=== PATIENT | female | born 1930 | race Caucasian/White ===

== ENCOUNTER 2017-11-26 11:30 | Inpatient (IN) | payer MEDICARE, BC ==
[2017-11-26 12:34] LABS: #Eosinphils 0.1 thou/uL (0.0-0.7); #Lymphocytes 1.2 thou/uL (1.20-3.40); #Monocytes 0.4 thou/uL (0.11-0.59); #Neutrophils 3.2 thou/uL (1.40-6.50); %Basophils 0.5 % (0.0-1.0); %Eosinophils 2.5 % (0.0-10.0); %Lymphocytes 24.3 % (21.0-51.0); %Monocytes 7.3 % (0.0-10.0); %Neutrophils 65.4 % (42.0-75.0); Mean Corpuscular HGB CONC 33.5 g/dL (32.0-36.0); Mean Corpuscular Hemoglobin 28.8 pg (27.0-31.0); Mean Platelet Volume 8.1 fL (7.4-10.4); Platelet Count 131 thou/uL (130-400); RBC Distribution Width 13.9 % (11.5-14.5); Red Blood Cell (RBC) Count 4.51 mill/uL (4.20-5.40); White Blood Cell (WBC) Count 4.9 thou/uL (4.8-10.8)
[2017-11-26 12:54] LABS: ALT (SGPT) 8 U/L (8-55); AST (SGOT) 14 U/L (5-34); Albumin 3.7 g/dL (3.4-4.8); Alkaline Phosphatase 73 U/L (40-150); Anion Gap 13 mmol/L (10-20); BUN (Urea Nitrogen) 21 mg/dL (9.8-20.1); Bilirubin, Total 0.7 mg/dL (0.2-1.2); CK (CPK) 79 U/L (29-168); Calc. Creatinine Clearance 0 mL/min (70-130); Calcium 8.5 mg/dL (7.8-10.44); Carbon Dioxide 24 mmol/L (23-31); Chloride 106 mmol/L (98-107); Estimated GFR-MDRD 50; Globulin 2.7 g/dL (2.4-3.5); Glucose 130 mg/dL (83-110); Lipase 45 U/L (8-78); Potassium 4.3 mmol/L (3.5-5.1); Protein, Total 6.4 g/dL (6.0-8.3); Sodium 139 mmol/L (136-145)
[2017-11-26 12:57] LABS: INR-International Normal Ratio 1.1; PTT 36.4 SEC (22.9-36.1); Prothrombin Time 14.7 SEC (12.0-14.7)
[2017-11-26 12:58] LABS: CKMB 2.2 ng/mL (0-6.6)
--- NOTE | 2017-11-26 13:11 | CT ---
CT BRAIN: Date: 11/26/17 PROVIDED CLINICAL HISTORY: Syncope. FINDINGS: Comparison with 08/29/12. The ventricular system appears normal in size and morphology. No evidence for intracranial hemorrhage or mass effect. Chronic microvascular ischemic changes are noted involving the cerebral white matter . The extracranial soft tissues and osseous structures demonstrate no acute findings. IMPRESSION: No evidence for intracranial hemorrhage or mass effect. POS: [facility]
--- NOTE | 2017-11-26 13:15 | RAD ---
PORTABLE CHEST: Date: 11/26/17 PROVIDED CLINICAL HISTORY: Weakness. FINDINGS: Comparison with 09/28/17. Cardiac and mediastinal silhouette is unchanged in appearance. Lungs appear clear. No pleural fluid o r pneumothorax apparent. IMPRESSION: No evidence for an acute cardiopulmonary process. POS: [facility]
[2017-11-26 13:34] LABS: Bilirubin Negative (Negative); Blood, Urine Negative (Negative); Clarity CLEAR (Clear); Glucose, Urine (Dipstick) Negative (Negative); Leukocyte Small (Negative); Nitrite Negative (Negative); Protein, Urine (Dipstick) Negative (Neg-Trace); Specific Gravity, Urine 1.009 (1.002-1.036); Urobilinogen 0.2 mg/dL (0.2-1.0); pH, Urine 6.5 (5.0-9.0)
[2017-11-26 13:36] LABS: Bacteria/HPF Rare-Few HPF (None Seen); Hyaline Casts/LPF 0-3 HYALINE CAST LPF (0-3 Hyaline); RBC/HPF 0-3 HPF (0-3); Squamous Epithelial 0-3 HPF (0-3); WBC/HPF 0-3 HPF (0-3)
[2017-11-26] MEDS ORDERED: Acetaminophen 325 MG TAB PO PRN (15:26)
[2017-11-26] MEDS ORDERED: Guaifenesin DM 100-10/5 ML UDCUP PO PRN (15:26)
[2017-11-26] MEDS ORDERED: Senokot 8.6 MG TAB PO PRN (15:26)
[2017-11-26 15:55] LABS: Critical Call Chem Troponin I RESULT DECREASING; Troponin I 0.316 ng/mL (< 0.028)
[2017-11-26 16:19] VITALS: BMI 31.6
--- NOTE | 2017-11-26 16:28 | HP ---
REASON FOR ADMISSION: Syncope, indeterminate troponin. HISTORY OF PRESENT ILLNESS: Patient was apparently sitting in the worship when she made a noise and slumped over. She was feeling cold, clammy and was not responsive per daughter who was next to her and witnessed the episode. She was not responding for nearly 4 or 5 minutes. They soon called EMS. The patient was slowly turning around and was saying "I'm okay" in a very weak voice and she had a weak pulse. In a few minutes, the patient again had another episode of slumping over before EMS arrived. After EMS arrived, the patient had systolic blood pressures at 65 mmHg. Her heart rate was 55. It is unclear what EMS did, but her blood pressures came up to 134/48 at 11:15 a.m., although her heart rate remained around 53. Currently in the ER room 23, patient is awake, alert, has no complaints of chest pain, palpitation, PND or orthopnea. No complaints of shortness of breath, fever, urinary symptoms, cough or expectoration. PAST MEDICAL/SURGICAL HISTORY: History of hypothyroidism, hypertension, coronary artery disease, appendectomy, peripheral neuropathy, hypothyroidism, dyslipidemia. CURRENT MEDICATIONS: Atorvastatin 20 mg p.o. daily, clonidine 0.2 mg p.o. q.a.m., Lasix 20 mg p.o. q.a.m., isosorbide mononitrate 30 mg p.o. twice daily, K-Dur 20 mEq p.o. daily, carvedilol 25 mg p.o. twice daily, gabapentin 600 mg p.o. at bedtime, losartan 100 mg p.o. daily, levothyroxine 50 mcg p.o. daily. ALLERGIES: No known drug allergies. PERSONAL HISTORY: Does not abuse alcohol or drugs. No history of smoking. FAMILY HISTORY: The patient has outlived all her siblings. REVIEW OF SYSTEMS: The following complete review of systems was negative, unless otherwise mentioned in the HPI or below: Constitutional: Weight loss or gain, ability to conduct usual activities. Skin: Rash, itching. Eyes: Double vision, pain. ENT/Mouth: Nose bleeding, neck stiffness, pain, tenderness. Cardiovascular: Palpitations, dyspnea on exertion, orthopnea. Respiratory: Shortness of breath, wheezing, cough, hemoptysis, fever or night sweats. Gastrointestinal: Poor appetite, abdominal pain, heartburn, nausea, vomiting, constipation, or diarrhea. Genitourinary: Urgency, frequency, dysuria, nocturia. Musculoskeletal: Pain, swelling. Neurologic/Psychiatric: Anxiety, depression. Allergy/Immunologic: Skin rash, bleeding tendency. PHYSICAL EXAMINATION: GENERAL: The patient is an 87-year-old female who is currently not in any acute distress. VITAL SIGNS: Blood pressure 160/54, pulse 60 per minute, respiratory rate 14 per minute, temperature 97.7 degrees Fahrenheit, saturating 97% on room air. NECK: Supple, no elevated JVD. HEENT: Extraocular muscles intact. Pupils are reacting to light. Oral cavity mucous membranes are moist. No exudates or congestion. CARDIOVASCULAR: S1, S2 heard. Regular rhythm. Murmur plus. RESPIRATORY: Air entry 1+ bilaterally. No rales or rhonchi. ABDOMEN: Soft, bowel sounds heard. No tenderness, rigidity or guarding. EXTREMITIES: No peripheral edema or calf tenderness. The patient wears an Santiago wrap for chronic edema in lower extremities with prior history of cellulitis. No ischemic ulcerations or gangrene. VASCULAR: Peripheral pulses are 1+ bilateral. CENTRAL NERVOUS SYSTEM: No gross focal deficits seen. Patient is alert, awake , and oriented well. PSYCHIATRIC: The patient's mood is euthymic. No hallucinations or delusions. LABORATORY AND X-RAY FINDINGS: Troponin I is 0.35. CK-MB 2.2. BNP is 227. Liver enzymes are within normal limits. Albumin is 3.7. Prolactin 7.4, lipase is 45. Electrolytes are stable. BUN 21, creatinine 1.0. PT/INR within normal limits. White count 4.9, H&H 13 and 38, platelet count 131, MCV is 86 with 65% neutrophils. Chest x-ray done shows no acute cardiopulmonary abnormalities. CT brain done shows no acute intracranial hemorrhage or mass. EKG done shows sinus bradycardia at 52 beats per minute. There is LVH strain pattern seen. CLINICAL IMPRESSION AND PLAN: The patient will be under observation on telemetry for syncope with indeterminate troponin. The patient is also bradycardic with likely due to multiple medications that she is on. She is also on Imdur 30 mg twice daily, likely from last 2 weeks or from the 2nd of this month, it is unclear. She also takes clonidine 0.2 mg p.o. q.a.m., instead of being on a p.r.n. basis. We will consult Dr. Abbasi, her food service associate during her stay here. We will continue her aspirin, Lipitor, Coreg, Neurontin, Synthroid, Cozaar as before. She will be on nitro paste half inch q.8 hourly. A nuclear stress test will be requested as well if the troponin remains less than 1. If patient were to become symptomatic, her stress test will be canceled. She will be kept n.p.o. after midnight for the stress test and further workup. Code status was discussed with the patient. She was previously DNR, but now she wants to talk to her children before she decides. For now, she will be FULL CODE until she decides and let us know. MARIFER
--- NOTE | 2017-11-26 16:40 | CON ---
DATE OF CONSULTATION: 11/26/2017 REASON FOR CONSULTATION: Syncope. PRIMARY OFFICE RN: Dr. Guilherme Abbasi. HISTORY OF PRESENT ILLNESS: Ms. Carson is a pleasant 87-year-old woman who has been seen by Dr. Wallace Abbasi in the past. She states she has syncopal episode today just prior to temple. There were no p redisposing factors. No chest pain, pressure, shortness of breath, dizziness or lightheadedness pres ent. No previous history of syncope. She states EMS was summoned due to no pulse and decrease blood pressure. She is back to her normal baseline. PAST MEDICAL HISTORY: Hypothyroidism, hyperlipidemia and hypertension. PAST SURGICAL HISTORY: Appendectomy. SOCIAL HISTORY: No tobacco or alcohol use. ALLERGIES: None. HOME MEDICATIONS: Include atorvastatin, clonidine, Lasix, isosorbide, potassium, carvedilol, gabapen tin, losartan and levothyroxine. REVIEW OF SYSTEMS: Ten-point review of systems is reviewed and as above, otherwise negative. PHYSICAL EXAMINATION: GENERAL: Patient is a pleasant female who is in no acute distress. The patient appears her stated a ge. VITAL SIGNS: Blood pressure 134/79, pulse 64 and temperature 98.2. NEUROLOGIC: The patient is alert and oriented x3 with no focal neurologic deficits. HEENT: Sclerae without icterus. Mouth has moist mucous membranes with normal pallor. NECK: No JVD. Carotid upstroke brisk. No bruits bilaterally. LUNGS: Clear to auscultation with unlabored respirations. BACK: No scoliosis or kyphosis. CARDIAC: Regular rate and rhythm with 2/6 systolic ejection murmur. No significant rubs, murmurs, t hrills, or gallops noted throughout the precordium. PMI is not displaced. There is no parasternal h eave. ABDOMEN: Soft, nontender, nondistended. No peritoneal signs present. No hepatosplenomegaly. No ab normal striae. EXTREMITIES: 2+ femoral and 2+ dorsalis pedis pulses. No cyanosis, clubbing, or edema. SKIN: No gross abnormalities. PERTINENT LABORATORY DATA: Hemoglobin 13. Creatinine 1.05. Troponin 0.35. IMPRESSION: Syncope. RECOMMENDATIONS: Ms. Carson's elevated troponin is certainly concerning. Her CK-MB is normal. Thi s may suggest coronary ischemia as the source. We discussed angiography with Ms. Carson. We will a lso recommend echo with Doppler in addition to monitoring overnight.
[2017-11-26] MEDS ORDERED: Communication Order-Pharmacy FS SCH (18:15)
[2017-11-26 19:25] LABS: Critical Call Chem Troponin I RESULT DECREASING; Troponin I 0.307 ng/mL (< 0.028)
[2017-11-26] MEDS: Atorvastatin Calcium 20 MG TAB PO SCH (20:00)
[2017-11-26] MEDS: Famotidine 20 MG TAB PO SCH (20:00)
[2017-11-26] MEDS: Carvedilol 25 MG TAB PO SCH (20:00)
[2017-11-26] MEDS: Nitroglycerin 2% Ointment 1 INCH/1 GM Packet TOP SCH (20:01)
[2017-11-26] MEDS: Gabapentin 300 MG CAP PO SCH (20:01)
[2017-11-27 04:50] LABS: #Eosinphils 0.1 thou/uL (0.0-0.7); #Lymphocytes 1.2 thou/uL (1.20-3.40); #Monocytes 0.5 thou/uL (0.11-0.59); #Neutrophils 2.7 thou/uL (1.40-6.50); %Basophils 0.1 % (0.0-1.0); %Eosinophils 2.9 % (0.0-10.0); %Lymphocytes 26.4 % (21.0-51.0); %Neutrophils 59.6 % (42.0-75.0); Hemoglobin 12.9 g/dL (12.0-16.0); Mean Corpuscular HGB CONC 32.9 g/dL (32.0-36.0); Mean Corpuscular Hemoglobin 28.2 pg (27.0-31.0); Mean Corpuscular Volume 85.8 fl (81.0-99.0); Mean Platelet Volume 8.6 fL (7.4-10.4); Platelet Count 130 thou/uL (130-400); Red Blood Cell (RBC) Count 4.58 mill/uL (4.20-5.40); White Blood Cell (WBC) Count 4.6 thou/uL (4.8-10.8)
[2017-11-27 05:03] LABS: Anion Gap 10 mmol/L (10-20); BUN (Urea Nitrogen) 21 mg/dL (9.8-20.1); Calc. Creatinine Clearance 70 mL/min (70-130); Calcium 8.6 mg/dL (7.8-10.44); Carbon Dioxide 26 mmol/L (23-31); Cardiac Risk 3.3 (Less than 4.5); Chloride 108 mmol/L (98-107); Cholesterol 134 mg/dl (< 200 Desired); Estimated GFR-MDRD 65; Glucose 112 mg/dL (83-110); HDL Cholesterol 41 mg/dL (>60 Neg Risk); LDL Cholesterol, Calculated 75 mg/dL; Potassium 3.7 mmol/L (3.5-5.1); Sodium 140 mmol/L (136-145); Triglycerides 89 mg/dL (Less than 150)
[2017-11-27] MEDS: Levothyroxine Sodium 50 MCG TAB PO SCH (05:20)
[2017-11-27] MEDS: Nitroglycerin 2% Ointment 1 INCH/1 GM Packet TOP SCH ×3 (05:20→20:36)
[2017-11-27] MEDS: Famotidine 20 MG TAB PO SCH ×2 (05:21→20:34)
[2017-11-27] MEDS: Losartan 25 MG TAB PO SCH (05:21)
[2017-11-27] MEDS: Carvedilol 25 MG TAB PO SCH ×2 (05:21→20:34)
[2017-11-27] MEDS ORDERED: Lidocaine 1% (PF) 30 ML VIAL ONE (07:09)
[2017-11-27] MEDS ORDERED: Nitroglycerin 100MG/250ML BOT 250 ML ONE (07:59)
[2017-11-27] MEDS ORDERED: hydrALAZINE 20 MG/ML VIAL ONE (08:07)
[2017-11-27] MEDS ORDERED: Acetaminophen/Codeine 30-300mg Tablet PO PRN ×2 (08:17)
[2017-11-27] MEDS ORDERED: Nitroglycerin 0.4 MG TAB (25 Tab Bottle) SL PRN (08:17)
[2017-11-27] MEDS ORDERED: traMADol HCl 50 MG TAB PO PRN (08:17)
[2017-11-27] MEDS ORDERED: Sodium Chloride 0.9% 200 ML IV SCH (08:30)
[2017-11-27] MEDS ORDERED: Sodium Chloride 0.9% 1,000 ML IV SCH (08:30)
[2017-11-27] MEDS ORDERED: Enoxaparin Sodium 40 MG/0.4 ML SYRINGE SC SCH (09:00)
[2017-11-27] MEDS ORDERED: Aspirin 325 MG TAB PO SCH (09:00)
[2017-11-27 10:09] LABS: Troponin I 0.285 ng/mL (< 0.028)
[2017-11-27 11:18] LABS: Troponin I 0.294 ng/mL (< 0.028)
--- NOTE | 2017-11-27 12:47 | ULT ---
BILATERAL CAROTID DOPPLER ULTRASOUND: HISTORY: Syncope. COMPARISON: None. TECHNIQUE: Real-time sepulveda-scale and color Doppler with spectral analysis of the extracranial carotid arteries an d vertebral arteries was performed. FINDINGS: No elevated peak systolic velocities within the internal carotid artery to suggest a hemodynamically significant stenosis. There is antegrade flow in both vertebral arteries. The right ICA/CCA ratio i s 0.97. The left ICA/CCA ratio is 1.19. IMPRESSION: No hemodynamically significant stenosis. POS: [facility]
[2017-11-27] MEDS ORDERED: hydrALAZINE 20 MG/ML VIAL SLOW IVP SCH (13:00)
[2017-11-27] MEDS ORDERED: Nitroglycerin 0.4 MG TAB (25 Tab Bottle) SL ONE (15:35)
[2017-11-27] MEDS ORDERED: cloNIDine 0.2 MG TAB PO SCH (15:45)
[2017-11-27] MEDS: Gabapentin 300 MG CAP PO SCH (20:35)
[2017-11-27] MEDS: Atorvastatin Calcium 20 MG TAB PO SCH (20:35)
[2017-11-27] MEDS ORDERED: cloNIDine 0.2 MG TAB PO PRN (23:45)
[2017-11-27] MEDS ORDERED: hydrALAZINE 20 MG/ML VIAL SLOW IVP PRN (23:47)
[2017-11-28] MEDS: Levothyroxine Sodium 50 MCG TAB PO SCH (05:24)
[2017-11-28] MEDS: Nitroglycerin 2% Ointment 1 INCH/1 GM Packet TOP SCH ×3 (05:26→21:50)
[2017-11-28] MEDS: Losartan 25 MG TAB PO SCH (07:57)
[2017-11-28] MEDS: Carvedilol 25 MG TAB PO SCH (07:57)
[2017-11-28] MEDS: Famotidine 20 MG TAB PO SCH ×2 (07:57→20:38)
[2017-11-28] MEDS: cloNIDine 0.2 MG TAB PO SCH (08:01)
--- NOTE | 2017-11-28 09:00 | PDOC.PN ---
- Subjective Encounter Start Date: 11/28/17 Encounter Start Time: 10:30 Subjective: pt flat in bed wants to get up - Objective Vital Signs & Weight: Vital Signs (12 hours) Temp Pulse Resp BP BP Pulse Ox 11/28/17 08:01 191/71 H 11/28/17 08:00 98.0 F 55 L 18 98 11/28/17 07:55 98.0 F 55 L 18 191/79 H 97 11/28/17 03:10 98.4 F 61 16 175/76 H 94 L 11/27/17 23:25 98.2 F 64 18 180/73 H 93 L Weight Weight 198 lb 3.2 oz I&O: 11/27/17 11/28/17 11/29/17 06:59 06:59 06:59 Intake Total 240 Output Total 500 Balance -260 Result Diagrams: 11/27/17 04:01 11/27/17 04:01 Phys Exam - Physical Examination HEENT: PERRLA Neck: no nodes, no JVD Respiratory: no wheezing, no rales Cardiovascular: RRR, no significant murmur Gastrointestinal: soft Musculoskeletal: no edema Dx/Plan - Plan 1) syncope 2) htn uncontrolled 3) hyperlipidemia 4) hypothrodism plan: pt had cath for elevated trops, no intervention needed. pt did have some svt today. will reconsult cardiology again HTN: will continue home meds but hold on bb given her bradycardia hyperlipidemia: stable hypothyroidism: will continue to monitor * . Review of Systems - Review of Systems Eyes: negative: Pain, Vision Change, Conjunctivae Inflammation, Eyelid Inflammation, Redness, Other ENT: negative: Ear Pain, Ear Discharge, Nose Pain, Nose Discharge, Nose Congestion, Mouth Pain, Mouth Swelling, Throat Pain, Throat Swelling, Other Respiratory: negative: Cough, Dry, Shortness of Breath, Hemoptysis, SOB with Excertion, Pleuritic Pain, Sputum, Wheezing Cardiovascular: negative: chest pain, palpitations, orthopnea, paroxysmal nocturnal dyspnea, edema, light headedness, other - Medications/Allergies Allergies/Adverse Reactions: Allergies Allergy/AdvReac Type Severity Reaction Status Date / Time No Known Allergies Allergy Verified 11/26/17 16:18 Medications: Current Medications Acetaminophen (Tylenol) 650 mg PO Q4H PRN PRN Reason: Headache/Fever or Pain Acetaminophen/Codeine Phosphate (Tylenol #3) 1 tab PO Q4H PRN PRN Reason: Mild Pain (1-3) Acetaminophen/Codeine Phosphate (Tylenol #3) 2 tab PO Q4H PRN PRN Reason: Moderate Pain (4-6) Atorvastatin Calcium (Lipitor) 20 mg PO HS [facility] Last Admin: 11/27/17 20:35 Dose: 20 mg Clonidine (Catapres) 0.2 mg PO DAILY [facility] Stop: 12/01/17 09:01 Last Admin: 11/28/17 08:01 Dose: 0.2 mg Famotidine (Pepcid) 20 mg PO BID [facility] Last Admin: 11/28/17 07:57 Dose: 20 mg Gabapentin (Neurontin) 600 mg PO HS [facility] Last Admin: 11/27/17 20:35 Dose: 600 mg Guaifenesin/Dextromethorphan (Robitussin Dm) 15 ml PO Q4H PRN PRN Reason: Cough Levothyroxine Sodium (Synthroid) 50 mcg PO 0600 [facility] Last Admin: 11/28/17 05:24 Dose: 50 mcg Losartan Potassium (Cozaar) 100 mg PO DAILY [facility] Last Admin: 11/28/17 07:57 Dose: 100 mg Nitroglycerin (Nitro-Bid 2% Ointment) 0.5 inch TOP Q8HR [facility] Last Admin: 11/28/17 12:46 Dose: Not Given Nitroglycerin (Nitrostat) 0.4 mg SL Q5MIN PRN PRN Reason: Chest Pain Quetiapine Fumarate (Seroquel) 25 mg PO [facility] Senna (Senokot) 2 tab PO HSPRN PRN PRN Reason: Constipation Last Admin: 11/28/17 05:24 Dose: 2 tab Sodium Chloride (Flush - Normal Saline) 10 ml IVF Q12HR [facility] Last Admin: 11/28/17 07:58 Dose: 10 ml Sodium Chloride (Flush - Normal Saline) 10 ml IVF PRN PRN PRN Reason: Saline Flush Tramadol HCl (Ultram) 50 mg PO Q6H PRN PRN Reason: Moderate Pain (4-6)
[2017-11-28] MEDS ORDERED: Iopamidol 370 76% 100 ML VIAL ONE (10:31)
--- NOTE | 2017-11-28 17:54 | PDOC.PN ---
- Objective Vital Signs & Weight: Vital Signs (12 hours) Temp Pulse Resp BP BP Pulse Ox 11/28/17 15:02 97.7 F 56 L 16 147/66 H 97 11/28/17 11:13 97.8 F 51 L 18 112/58 L 98 11/28/17 10:18 53 L 111/57 L 11/28/17 08:01 191/71 H 11/28/17 08:00 98.0 F 55 L 18 98 11/28/17 07:55 98.0 F 55 L 18 191/79 H 97 Weight Weight 198 lb 3.2 oz I&O: 11/27/17 11/28/17 11/29/17 06:59 06:59 06:59 Intake Total 240 480 Output Total 500 Balance -260 480 Result Diagrams: 11/27/17 04:01 11/27/17 04:01 Dx/Plan - Plan * . 1) syncope 2) htn uncontrolled 3) hyperlipidemia 4) hypothrodism plan: pt had cath for elevated trops, no intervention needed. pt did have some svt 11/27. EP consulted HTN: will continue home meds but hold on bb given her bradycardia hyperlipidemia: stable hypothyroidism: will continue to monitor pt was confused last night. will add seroquel today
--- NOTE | 2017-11-28 19:29 | PDOC.CTH ---
Cardiology Progress Note - Subjective She is doing well. no more syncopal spells. She has had a wide complex rhythm on telemetry that may be AIVR or slow non sustained VT. - Objective Vital Signs Temp Pulse Resp BP BP Pulse Ox 11/28/17 18:43 98.1 F 56 L 16 175/76 H 97 11/28/17 15:02 97.7 F 56 L 16 147/66 H 97 11/28/17 11:13 97.8 F 51 L 18 112/58 L 98 11/28/17 10:18 53 L 111/57 L 11/28/17 08:01 191/71 H 11/28/17 08:00 98.0 F 55 L 18 98 11/28/17 07:55 98.0 F 55 L 18 191/79 H 97 Weight 198 lb 3.2 oz 11/27/17 11/28/17 11/29/17 06:59 06:59 06:59 Intake Total 240 720 Output Total 500 Balance -260 720 - Physical Examination General/Neuro: alert & oriented x3, NAD Neck: no JVD present Lungs: CTA, unlabored respirations Heart: RRR Abdomen: NT/ND Extremities: + edema B (trace) - Telemetry Telemetry Rhythm: NSR, WC rhythm. - Labs Result Diagrams: 11/27/17 04:01 11/27/17 04:01 Troponin/CKMB CK-MB (CK-2) 2.2 ng/mL (0-6.6) 11/26/17 12:23 Troponin I 0.294 ng/mL (< 0.028) H 11/27/17 10:38 - Assessment/Plan 1. Syncope 2. Mild congestive heart failure, systolic most likely 3. 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 Mild . 5. Wide complex tachycardia, HR in the 90-110 PLAN: - May be relate to AIVR versus aberrancy, EP has been consulted. - No signifciant LVOT gradient on echo and only mild. - Became bradycardic to the 40's when given BB for her non sustained VT. - Will follow. - Would hold off on an more diuresis, she is more euvolemic now and it may exacerbate an LVOT obstruction.
[2017-11-28] MEDS: Atorvastatin Calcium 20 MG TAB PO SCH (20:38)
[2017-11-28] MEDS: Gabapentin 300 MG CAP PO SCH (20:38)
[2017-11-29] MEDS: Levothyroxine Sodium 50 MCG TAB PO SCH (05:30)
[2017-11-29] MEDS: Nitroglycerin 2% Ointment 1 INCH/1 GM Packet TOP SCH (05:30)
[2017-11-29] MEDS: cloNIDine 0.2 MG TAB PO SCH (08:02)
[2017-11-29] MEDS: Losartan 25 MG TAB PO SCH (08:02)
[2017-11-29] MEDS: Famotidine 20 MG TAB PO SCH ×2 (08:02→21:26)
[2017-11-29] MEDS ORDERED: Nitroglycerin 0.4 MG TAB (25 Tab Bottle) SL ONE (08:50)
[2017-11-29] MEDS: Isosorbide Dinitrate 20 MG TAB PO SCH ×2 (09:42→21:26)
--- NOTE | 2017-11-29 15:52 | PDOC.CTH ---
Cardiology Progress Note - Subjective She feels well. I walked into her room and her BP was in the 70's over 40's. She received an IV bolus of fluids and she responded very well. BP now at 110/ 62. She denies feeling presyncope or lightheaded with this BP. - Objective Vital Signs Temp Pulse Resp BP BP Pulse Ox 11/29/17 11:50 116/57 L 11/29/17 11:25 106/57 L 11/29/17 11:11 97.6 F 55 L 14 77/42 L 95 11/29/17 09:43 120/58 L 11/29/17 08:02 208/89 H 11/29/17 07:45 97.6 F 55 L 14 208/89 H 92 L 11/29/17 04:25 98.5 F 55 L 16 162/68 H 95 Weight 199 lb 6.4 oz 11/28/17 11/29/17 11/30/17 06:59 06:59 06:59 Intake Total 240 1200 Output Total 500 1350 Balance -260 -150 - Physical Examination General/Neuro: alert & oriented x3, NAD Neck: no JVD present Lungs: CTA, unlabored respirations Heart: RRR Abdomen: NT/ND Extremities: other: (no edema) - Telemetry Telemetry Rhythm: NSR. - Labs Result Diagrams: 11/27/17 04:01 11/27/17 04:01 Troponin/CKMB CK-MB (CK-2) 2.2 ng/mL (0-6.6) 11/26/17 12:23 Troponin I 0.294 ng/mL (< 0.028) H 11/27/17 10:38 - Assessment/Plan 1. Syncope 2. Mild congestive heart failure 3. 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 Mild . 5. Wide complex tachycardia, HR in the 90-110, may be aberrant conduction. PLAN: - EP consult pending. - No signifciant LVOT gradient on echo and only mild. - Became bradycardic to the 40's when given BB for her non sustained VT. - 500 ml IV bolus given for hypotension and responded well. .
--- NOTE | 2017-11-29 15:55 | CON ---
DATE OF CONSULTATION: 11/29/2017 ELECTROPHYSIOLOGY CONSULTATION REFERRING PHYSICIAN: Patricia Abbasi M.D. REASON FOR CONSULTATION: Syncope and wide complex tachycardia. HISTORY OF PRESENT ILLNESS: Ms. Carson is a very pleasant 87-year-old patient who arrived in the emergency room via EMS. She was at [employer] and had a syncopal episode. She does endorse that she was feeling slightly dizzy leading up to passing out. Family reports that she is acting groggy for about 3 minutes and then was back to normal mentation. She denies any heart racing, palpitations leading up to her episode. She has never had this happened before. There was no bowel or bladder incontinence associated. She denies any recent changes in her medication. She has been eating and drinking normally prior to the episode. Now we found her and she reports that she is back to her normal baseline. She has not had any recurrent episodes. She denies any heart racing, palpitations, chest pain or pressure. She has not had any dizziness or near syncopal episodes. She denies any stroke or stroke-like symptoms including unilateral weakness, speech changes, vision changes, paresthesias or facial droop. She has no history of arrhythmias. PAST MEDICAL HISTORY: Hypothyroidism, hyperlipidemia, and hypertension. PAST SURGICAL HISTORY: Appendectomy. SOCIAL HISTORY: Negative for tobacco, alcohol or illicit drug use. ALLERGIES: None. HOME MEDICATIONS: Include atorvastatin, clonidine, Lasix, isosorbide, potassium , carvedilol, gabapentin, losartan, and levothyroxine. REVIEW OF SYSTEMS: A 12 point review of systems was conducted and is negative except that listed above. PHYSICAL EXAMINATION: VITAL SIGNS: Most recent vital signs, 97.6 degrees Fahrenheit, pulse is 55, blood pressure 116/57, respirations are 14, 95% oxygen saturation on room air. GENERAL: This is a well-appearing and well-nourished female in no acute distress. She is moderately obese. She is alert and oriented x4. Her speech is clear and her affect is appropriate. HEENT: She is normocephalic. Her sclerae are anicteric and her EOMs are intact. NECK: Supple without jugular venous distention. Her thyroid is not palpable and there is no lymphadenopathy. Her oral mucosa is moist and pink with adequate dentition. Her carotids are without bruit with brisk uptake bilaterally. LUNGS: Clear to auscultation bilaterally without wheezes, crackles or rhonchi. Respirations are even and unlabored with good bilateral excursion. Her heart rate is regularly regular without significant murmur, rub or gallop. EXTREMITIES: Warm and dry to touch without clubbing, cyanosis or edema. There is trace edema to bilateral lower extremities. ABDOMEN: Obese, soft, and nontender without palpable masses. Hepatojugular reflux is negative. NEUROLOGIC: Grossly intact and nonfocal. Gait was not assessed as patient is resting in bed. LABORATORY DATA: Laboratory results from 11/27/2017, WBC 4.6, hemoglobin 12.9, hematocrit 39.3, and platelet count is 130. Chemistry: Sodium 140, potassium 3.7, chloride 108, carbon dioxide 26, BUN is 21, and creatinine 0.83. Serial troponins were conducted peaking at 0.350. BNP on 11/26/2017 was 227. Urinalysis on 11/26/2017 was negative for UTI. IMAGING DATA: Review of 12 lead and rhythm on telemetry. These were personally reviewed by Dr. Marshall. Patient was found to have wide complex tachycardia that is a slow ventricular tachycardia in 120 beat per minute range. Otherwise, patient is maintaining sinus mechanism with rates between 55 and 70. ASSESSMENT: 1. Recent syncopal episode. 2. Slow ventricular tachycardia of which patient is asymptomatic. ASSESSMENT AND PLAN: A lengthy discussion was had with the patient and her family regarding ventricular tachycardia and available treatments. The patient has not had an episode like this previously. It is possible that her episode was linked with the arrhythmia that we find as an inpatient; however, patient has had repeat episodes of VT while hospitalized and she has remained completely asymptomatic throughout. At this point, recommend the patient discharged home with a monitor to wear for 2-3 weeks to better assess burden of her arrhythmias and ideally to correlate symptoms with her arrhythmias. Alternatively, patient should be initiated on beta phu and possibly sotalol down the road. Should her arrhythmias evidently correlate with her symptoms in the future by her monitor, would consider VT ablation. The patient and her family verbalized understanding and agreed with this plan of care. All questions have been answered. Dictated as scribe for Dr. Joanna CAICEDO
[2017-11-29] MEDS: Gabapentin 300 MG CAP PO SCH (21:25)
[2017-11-29] MEDS: Atorvastatin Calcium 20 MG TAB PO SCH (21:26)
--- NOTE | 2017-11-29 22:24 | PDOC.PN ---
- Subjective Encounter Start Date: 11/29/17 Encounter Start Time: 10:30 Subjective: pt up in bed no compalins - Objective Vital Signs & Weight: Vital Signs (12 hours) Temp Pulse Resp BP Pulse Ox 11/29/17 16:15 97.6 F 61 16 166/67 H 96 11/29/17 11:50 116/57 L 11/29/17 11:25 106/57 L 11/29/17 11:11 97.6 F 55 L 14 77/42 L 95 Weight Weight 199 lb 6.4 oz I&O: 11/28/17 11/29/17 11/30/17 06:59 06:59 06:59 Intake Total 240 1200 Output Total 500 1350 Balance -260 -150 Result Diagrams: 11/27/17 04:01 11/27/17 04:01 Phys Exam - Physical Examination HEENT: PERRLA Neck: no nodes Respiratory: no wheezing, no rales Cardiovascular: RRR, no significant murmur Gastrointestinal: soft, non-tender Musculoskeletal: no edema Neurological: non-focal Dx/Plan - Plan * . 1) syncope 2) htn uncontrolled 3) hyperlipidemia 4) hypothrodism plan: pt had cath for elevated trops, no intervention needed. pt did have some svt 11/27. EP consulted HTN: will continue home meds but hold on bb given her bradycardia hyperlipidemia: stable hypothyroidism: will continue to monitor pt was seen by EP will put pt on coreg again low dose. she did have low bp today after getting all her meds. will rearrange her meds so she does not have low bp again. Her bp is very labile. will lower the dose of clonidine.
[2017-11-30 05:48] LABS: Anion Gap 11 mmol/L (10-20); BUN (Urea Nitrogen) 25 mg/dL (9.8-20.1); Calc. Creatinine Clearance 74 mL/min (70-130); Calcium 8.4 mg/dL (7.8-10.44); Carbon Dioxide 24 mmol/L (23-31); Chloride 109 mmol/L (98-107); Estimated GFR-MDRD 70; Glucose 100 mg/dL (83-110); Potassium 3.8 mmol/L (3.5-5.1); Sodium 140 mmol/L (136-145)
[2017-11-30] MEDS: Levothyroxine Sodium 50 MCG TAB PO SCH (05:59)
[2017-11-30] MEDS ORDERED: Carvedilol 6.25 MG TAB PO SCH (08:00)
--- NOTE | 2017-11-30 08:10 | PDOC.CTH ---
Cardiology Progress Note - Subjective The pt seen and examined. No overnight events. No cardiac complaints. Her SBP in AM has been 180-200s and gone down to 100-110s after AM BP meds. - Objective Vital Signs Temp Pulse Resp BP BP Pulse Ox 11/30/17 04:00 98.8 F 65 19 201/85 H 95 11/30/17 01:31 98.6 F 66 17 139/62 97 11/29/17 23:59 98.6 F 66 17 139/62 97 Weight 200 lb 11/29/17 11/30/17 12/01/17 06:59 06:59 06:59 Intake Total 1200 360 Output Total 1350 200 Balance -150 160 - Physical Examination General/Neuro: alert & oriented x3 Neck: no JVD present Lungs: CTA Heart: RRR Abdomen: soft Extremities: other: (No edema) - Telemetry Telemetry Rhythm: SR 60s - Labs Result Diagrams: 11/27/17 04:01 11/30/17 03:59 Troponin/CKMB CK-MB (CK-2) 2.2 ng/mL (0-6.6) 11/26/17 12:23 Troponin I 0.294 ng/mL (< 0.028) H 11/27/17 10:38 - Assessment/Plan 1. Syncopal episode - no recurrent episode during this admission per family report; cont. monitor on tele 2. 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 No edema, stable with RA. 3. LVH with possible LVOT obstruction - cont. monitor 4. Mild . 5. Wide complex tachycardia, HR in the 90-110 - may be aberrant conduction, EP consult, Hx of bradicardia after BBlocker was given. 6. HTN - BP tend to be very high in AM and stable after AM medication; Start Norvasc 5mg @ HS and Clonidin 0.1mg x1 this AM 7. Hyperlipidemia - on Statin 8. Hypothyrodism - Managed by PCP SALLY reviewed * Cath on 11/27/17 showed normal coronary arteries. * per EP recommendation, D/c with [facility] for 2-3 wks and possible VT ablation for VT * Carotid doppler stuty on 11/27/17 showed no significant stenosis Review of Systems - Review of Systems Constitutional: reports: no symptoms reported EENTM: reports: no symptoms reported Respiratory: reports: no symptoms reported Cardiac (ROS): reports: no symptoms reported ABD/GI: reports: no symptoms reported : reports: no symptoms reported Musculoskeletal: reports: no symptoms reported
[2017-11-30] MEDS ORDERED: cloNIDine 0.1 MG TAB PO SCH ×2 (08:15→17:00)
[2017-11-30] MEDS: Famotidine 20 MG TAB PO SCH (08:38)
[2017-11-30 08:40] VITALS: BP 142/67
[2017-11-30] MEDS: Isosorbide Dinitrate 20 MG TAB PO SCH (08:58)
[2017-11-30] MEDS ORDERED: Losartan 25 MG TAB PO SCH (09:00)
--- NOTE | 2017-11-30 11:19 | PDOC.CTH ---
<Evelyn Bejarano - Last Filed: 11/30/17 11:17> Cardiology Progress Note - Subjective EP progress note: patient has done well overnight but had difficulty sleeping. She has been up walking in the room, eating, and voiding normally. Denies any heart racing, palpitations, chest pain, dizziness, or passing out. She is without cardiac complaint today. - Objective Vital Signs Temp Pulse Resp BP BP BP Pulse Ox 11/30/17 08:37 142/67 H 11/30/17 04:00 98.8 F 65 19 201/85 H 95 11/30/17 01:31 98.6 F 66 17 139/62 97 11/29/17 23:59 98.6 F 66 17 139/62 97 Weight 200 lb 11/29/17 11/30/17 12/01/17 06:59 06:59 06:59 Intake Total 1200 360 Output Total 1350 200 Balance -150 160 - Physical Examination General/Neuro: alert & oriented x3, NAD Neck: carotid US brisk, no JVD present Lungs: CTA, unlabored respirations Heart: RRR Abdomen: no HSM, NT/ND, soft - Telemetry Telemetry Rhythm: NSR/SA - Labs Result Diagrams: 11/27/17 04:01 11/30/17 03:59 Troponin/CKMB CK-MB (CK-2) 2.2 ng/mL (0-6.6) 11/26/17 12:23 Troponin I 0.294 ng/mL (< 0.028) H 11/27/17 10:38 - Assessment/Plan 1. Syncope- no recurrence. Possibly cardiogenic although patient was asymptomatic with WCT captured on tele monitor. 2. Non sustained ventricular tachycardia- slow VT in 120-130 range. Asymptomatic. No additional episodes in past 24 hours. 3. Hypertension- per cardiology Arranging for 2 week monitor to be sent to patient once discharged. Follow up at [facility] in 4-6 weeks <Timi Laurent - Last Filed: 12/04/17 16:06> Cardiology Progress Note - Objective Weight 200 lb - Labs Result Diagrams: 11/27/17 04:01 11/30/17 03:59 Troponin/CKMB CK-MB (CK-2) 2.2 ng/mL (0-6.6) 11/26/17 12:23 Troponin I 0.294 ng/mL (< 0.028) H 11/27/17 10:38 Attending Addendum - Attending Addendum Date/Time: 12/04/17 1606 I agree with the History, Examination, Assessment and Plan documentedby Ms Bejarano.
[2017-11-30 11:20] VITALS: TEMP 97.2
--- NOTE | 2017-11-30 13:09 | CON ---
DATE OF CONSULTATION: 11/29/2017 REQUESTING PHYSICIAN: Dr. Guilherme Abbasi. REASON FOR VISIT: Syncope and reports a wide complex tachycardia. HISTORY OF PRESENT ILLNESS: Clarice Carson is an 87-year-old lady, who was brought to the emergency ro by EMS. She apparently was at [employer] and had a near syncopal episode. She reported that she felt dizzy and began to slump over. Family reported that she was somewhat groggy, but when I talked to h er, she would in a low voice, telling that she feels okay, but felt a little lightheaded. They held her in the upright position and then she returned after about 3 minutes to normal mentation. She was unaware of any sense of rapid palpitations. She has not had previous episodes of syncope. She had no evidence of seizure disorder, bowel or bladder incontinence, and she was not confused for a prolon ged period of time after the event. She returned to baseline subsequently thereafter. In the hospit al, on telemetry monitoring, she has demonstrated some episodes of a relatively slow ventricular tach ycardia, for which she was asymptomatic. A Cardiology evaluation shows her ejection fraction is well preserved. PAST MEDICAL HISTORY: Notable for hypothyroidism, hyperlipidemia, and hypertension. PAST SURGICAL HISTORY: She has a history of appendectomy. SOCIAL HISTORY: No tobacco, alcohol, or illicit drug use. ALLERGIES: No known allergies. HOME MEDICATIONS: Include Atorvastatin, clonidine, Lasix, isosorbide, potassium, gabapentin, carvedi lol, losartan, and levothyroxine. REVIEW OF SYSTEMS: Negative for fevers, chills. No change in vision or hearing, no TIA, strokes, pa raesthesia, dysarthric, dysphasia. No claudication, no recent cough or upper respiratory infection, no wheezing or asthma. Denies hemoptysis, no anginal type chest pain, near syncope as described abov e. No orthopnea or paroxysmal nocturnal dyspnea. No abdominal pain, melena, hematochezia, no freque ncy, dysuria, hematuria. No rashes. No skin cancer. No depression, anxiety. PHYSICAL EXAMINATION: GENERAL: Well-developed, well-nourished lady. VITAL SIGNS: Pulse is around 55 beats per minute, blood pressure is 116/57, respirations are 13-14, and 95% saturations. HEENT: She is normocephalic, atraumatic. Pupils equally round and reactive. Extraocular muscles ar e intact. Sclerae are anicteric. Conjunctivae clear. Mucous membranes pink and moist. Dentition i s adequate. NECK: Supple. There is no jugular venous distention. Carotids have good upstroke. No adenopathy o r thyromegaly. CHEST: Clear. Respiratory effort is normal. HEART: She has a regular rate with a nondisplaced PMI. No heaves, gallops, or rubs. ABDOMEN: Soft, benign, nontender, no organomegaly. Bowel sounds are present. The abdominal aorta i s not palpable. VASCULAR: Femoral pulses are 2+ and symmetric. Dorsalis pedis, posterior tibialis, and radial pulse s are symmetric. SKIN: Warm and dry without clubbing, cyanosis or edema. There is no significant kyphoscoliosis. NEUROLOGIC: Grossly nonfocal. Alert and oriented x4. LABORATORY STUDIES: Essentially unremarkable. Telemetry shows a normal baseline EKG. EKGs that freida w a wide complex tachycardia that is relatively slow in the 120 beats per minute range and there is a dissociation of her ventricular rhythm with a slower atrial rhythm that can be seen to march through her QRS complexes. IMPRESSION: 1. Recent syncopal event. 2. Preserved left ventricular systolic function. 3. Probable normal heart ventricular tachycardia that is relatively slow and in the hospital has bee n asymptomatic. RECOMMENDATIONS: I had a lengthy discussion with the patient and family today with her advanced age, we discussed the near syncopal episode that she had again she did not lose consciousness with this e pisode. One option would be to continue to monitor her and see if there are any recurrences, very di fficult to determine this whether the slow ventricular tachycardia is responsible for her syncopal ep isode. It may be completely unrelated and may respond to beta blockers probably a left bundle branch block pattern from the outflow tract. We will plan to see her back in followup in about 6 weeks.
--- NOTE | 2017-11-30 15:16 | PDOC.PN ---
- Subjective Encounter Start Date: 11/30/17 Encounter Start Time: 12:30 - Objective Vital Signs & Weight: Vital Signs (12 hours) Temp Pulse Resp BP BP BP Pulse Ox 11/30/17 08:37 142/67 H 11/30/17 08:17 97.2 F L 75 18 142/67 H 95 11/30/17 08:00 97.2 F L 75 18 95 11/30/17 04:00 98.8 F 65 19 201/85 H 95 Weight Weight 200 lb I&O: 11/29/17 11/30/17 12/01/17 06:59 06:59 06:59 Intake Total 1200 360 360 Output Total 1350 200 Balance -150 160 360 Result Diagrams: 11/27/17 04:01 11/30/17 03:59 Phys Exam - Physical Examination HEENT: PERRLA Neck: no nodes Respiratory: no wheezing, no rales Cardiovascular: RRR, no significant murmur Gastrointestinal: soft, non-tender Musculoskeletal: no edema Dx/Plan - Plan * . * . 1) syncope 2) htn uncontrolled 3) hyperlipidemia 4) hypothrodism plan: pt had cath for elevated trops, no intervention needed. pt did have some svt 11/27. EP consulted HTN: will continue home meds but hold on bb given her bradycardia hyperlipidemia: stable hypothyroidism: will continue to monitor pt was seen by EP will put pt on coreg again low dose. she did have low bp today after getting all her meds. will rearrange her meds so she does not have low bp again. Her bp is very labile. will lower the dose of clonidine. questions answered. pt and pt's family made aware that they will have to follow up with ep and pcp. also to keep a log of he blood pressure since her bp is very labile.
[2017-11-30] MEDS ORDERED: Amlodipine 5 MG TAB PO SCH (21:00)
--- NOTE | 2017-11-30 22:04 | DIS ---
DATE OF ADMISSION: 11/27/2017 DATE OF DISCHARGE: 11/30/2017 DISCHARGE DIAGNOSES: 1. Syncope, most likely secondary to underlying arrhythmia, possibly ventricular tachycardia. 2. Hypertension, very labile. 3. Hyperlipidemia. 4. Elevated troponins, possible non-ST elevation myocardial infarction on admission; however, the anette nunez had a cardiac catheterization in which non-ST elevation myocardial infarction was ruled out. HISTORY OF PRESENT ILLNESS AND HOSPITAL COURSE: The patient is a very pleasant 87-year-old female wh o initially presented to the hospital after having a syncopal episode at [employer] while she was sitting . Patient did have elevated troponins and was seen by Cardiology and underwent a cardiac catheteriza tion, which was negative and no interventions were done. The patient also had an echocardiogram, whi ch indicated an EF of 60%-65% with some diastolic dysfunction. She also had carotid Dopplers done, w hich did not indicate any significant stenosis. On the day of discharge, patient did have some tachy cardia, which was concerning for possible V-tach which was intermittent and nonsustained. At this ti tn, Cardiology was reconsulted and Cardiology consulted Electrophysiology. EP did see the patient an d recommended a Holter monitor as outpatient. Also recommended us a low dose of beta phu, this w as confirmed when I called the EP Nurse Practitioner. The patient's hospital course was complicated with very labile blood pressure, at times, her blood pressure will be 200/110 and after giving her me dications, she dropped down in the 70s, she was asymptomatic, this was on 11/29/2017 and she was give n a bolus of normal saline and her pressure normalized after. At this time, patient's blood pressure medications were adjusted, so that she would not have this episode of low blood pressure again. Jessica tsang will follow up with PCP in 1 week and Cardiology in about 4 weeks. DISCHARGE MEDICATIONS: Potassium chloride 10 p.o. daily, levothyroxine 50 mcg daily, Isosorbide 30 m g p.o. b.i.d., gabapentin 600 mg p.o. at bedtime, Lasix 20 mg p.o. daily, atorvastatin 20 mg at bedti me, Cozaar 50 mg p.o. b.i.d., carvedilol 12.5 mg p.o. b.i.d. and Norvasc 5 mg at night.
--- NOTE | 2017-12-02 12:37 | EKG ---
Test Reason : Blood Pressure : / mmHG Vent. Rate : 052 BPM Atrial Rate : 052 BPM P-R Int : 152 ms QRS Dur : 104 ms QT Int : 500 ms P-R-T Axes : 066 023 231 degrees QTc Int : 465 ms Sinus bradycardia Left ventricular hypertrophy with repolarization abnormality Abnormal ECG Confirmed by MORIAH COLLINS, DORIS ([id number]), story editor ARSLAN DURAN ([id number]) on 12/02/2017 12:36:07 PM Referred By: Confirmed By:DORIS MAJOR MD
== END 2017-11-30 16:12 | disposition home or self-care (01) | DRG 286 ==
LOC: ERS 11:30 → 2SW 15:30 → OBSVTOIN 11-27 15:27 → 2NO 11-28 19:33
PROVIDERS: ADMIT Internal Medicine; ATTEND Internal Medicine
PROC: 4A023N7 Measurement of Cardiac Sampling and Pressure, Left Heart, Percutaneous Approach (ICD-10-PCS; principal; 2017-11-27)
PROC: B2111ZZ Fluoroscopy of Multiple Coronary Arteries using Low Osmolar Contrast (ICD-10-PCS; 2017-11-27)
PROC: B2151ZZ Fluoroscopy of Left Heart using Low Osmolar Contrast (ICD-10-PCS; 2017-11-27)
DX: I47.2 Ventricular tachycardia (principal); I50.33 Acute on chronic diastolic (congestive) heart failure; I95.9 Hypotension, unspecified; I11.0 Hypertensive heart disease with heart failure; I35.0 Nonrheumatic aortic (valve) stenosis; E03.9 Hypothyroidism, unspecified; E78.5 Hyperlipidemia, unspecified
CPT/HCPCS: 36415; 70450; 71045; 76942; 80048; 80053; 80061; 81003; 81015; 82553; 83690; 83880; 84146; 84484; 85025; 85610; 85730; 93005; 93306; 93458; 93880; 94760; A4216; C1760; C1769; J0360; J1644; J2001